=== PATIENT | male | born 1950 | race Caucasian/White ===

== ENCOUNTER 2018-12-10 12:09 | Inpatient (IN) | payer MEDICARE, BC ==
[~2018-12-10] VITALS: Ht 177.8 cm; Wt 104.0 kg
[~2018-12-10 12:09] MED LIST: ACET500 PO; AMBIEN; AMLO5 PO; ANTIBIOTIC; ASPI325 PO; ASPI81EC PO; BELSOMRA10 MG PO; BIOTIN-D1 GM PO; BUPR75 PO; CALC.25; CALC.25 PO; CLON.5 PO; DICL100ER PO; DULO60 PO; FINA5; FINA5 PO; GABA100 PO; HYDACE5 PO; HYDR1TAB94 PO; LISI5 PO; MOMENI; Norco 5-325 Ta1 EACH PO; OXYACE7.5T PO; PANT40 PO; POTCIT10 PO; POTCIT5; PRAV20; PRED20 PO; PROP10 PO; PROP20 PO; Pravachol80 MG PO; Prinivil10 MG PO; Protonix40 MG PO; ROSU10TA PO; SERT100 PO; TUMS FRESHERS200 MG PO; UBID10 PO; VENL75ER; VENL75ER PO; VITAMIN D31000 UNI2 PO; Vitamin C100 M1; ZOLP10; Zofran Odt4 MG SL
--- NOTE | 2018-12-11 06:40 | NUR ---
INTO [facility] ADMISSION STARTED TO UNIT
--- NOTE | 2018-12-11 06:40 | NUR ---
Ambulatory in Day Surgery History, Chart, Medications and Allergies reviewed before start of procedure.Lungs clear T/O to Auscultation. Patient confirms NPO status and agrees with scheduled surgery.
--- NOTE | 2018-12-11 07:38 | NUR ---
UP TO BATHROOM PRIOR TO TAKING BACK TO OR. CALL TO PHARMACY LOOKING FOR TRANSEMIC (SP) RX ORDERED.
--- NOTE | 2018-12-12 05:33 | NUR ---
SHIFT SUMMARY AAOX4. POD#1 RIGHT JASPAL. DISCOMFORT CONTROLLED WITH 1 ROXICODONE Q4P + TORADOL X1 THIS SHIFT. NO NAUSEA/EMESIS. DRESSING TO RIGHT HIP C/D/I. UP TO RESTROOM, SBA WITH FWW, TOLERATED WELL. PT RESTED WELL T/O NIGHT + RESTING WELL THIS AM, NADN, CALL LIGHT IN REACH.
[2018-12-12 06:34] LABS: BASOPHILS ABSOLUTE AUTO 0.01 K/mm3 (0.00-0.23); BASOPHILS PERCENT AUTO 0 % (0-2); EOSINOPHILS ABSOLUTE AUTO 0.01 K/mm3 (0.00-0.68); EOSINOPHILS PERCENT AUTO 0 % (0-6); Hematocrit 34.7 % (37.0-53.0); Hemoglobin 11.4 g/dL (13.5-17.5); IMMATURE GRAN ABSOLUTE AUTO 0.05 K/mm3 (0.00-0.10); IMMATURE GRAN PERCENT AUTO 0 % (0-1); LYMPHOCYTES ABSOLUTE AUTO 1.36 K/mm3 (0.84-5.20); LYMPHOCYTES PERCENT AUTO 10 % (21-46); MONOCYTES ABSOLUTE AUTO 1.34 K/mm3 (0.16-1.47); MONOCYTES PERCENT AUTO 10 % (4-13); Mean Corpuscular HGB Conc 32.9 g/dL (31.5-36.5); Mean Corpuscular Volume 85 fL (80-100); Mean Platelet Volume 10.8 fL (9.1-12.4); NEUTROPHILS ABSOLUTE AUTO 10.41 K/mm3 (1.96-9.15); NEUTROPHILS PERCENT AUTO 79 % (41-73); Platelet Count 165 K/mm3 (150-400); RDW Coefficient Variation 14.1 % (11.7-14.2); RDW Standard Deviation 43.9 fL (35.1-46.3); Red Blood Cell Count 4.07 M/mm3 (4.30-5.90); White Blood Cell Count 13.18 K/mm3 (4.00-11.30)
[2018-12-12 06:51] LABS: Bun/Creatinine Ratio 20.3 (12.0-20.0); Calcium, Blood 8.2 mg/dL (8.5-10.1); Creatinine, Blood 1.38 mg/dL (0.60-1.20); Potassium, Blood 3.9 mmol/L (3.5-5.5)
--- NOTE | 2018-12-12 08:05 | NUR ---
oob to bathroom then to chair pt reports min pain aquacel cdi pt assisted into his own clothes
[2018-12-12] MEDS ORDERED: XARELTO15 MG PO (09:39)
[2018-12-12] MEDS ORDERED: CELE100 PO (09:39)
[2018-12-12] MEDS ORDERED: Percocet 5-3251 EACH PO (09:39)
--- NOTE | 2018-12-12 11:13 | NUR ---
DISCHARGE INSTRUCTIONS REVIEWED WITH PT VERBALIZED WITH PT DRESSING SUPPLIES GIVEN PT AWAITING A RIDE
--- NOTE | 2018-12-12 12:00 | NUR ---
pt eating lunch
--- NOTE | 2018-12-12 12:30 | NUR ---
wc escort to car no acute changes
--- NOTE | 2018-12-15 12:34 | NUR ---
12/15/18 1234 Francie Murphy VERIFICATIONS: EDIT CHART.
== END 2018-12-12 12:28 | disposition home or self-care (01) | DRG 470 ==
LOC: SURS 12-11 06:14 → PRE IP 12-11 07:30 → SURS 12-11 11:01
PROVIDERS: ADMIT Orthopaedic Surgery
PROC: 0SR904A Replacement of Right Hip Joint with Ceramic on Polyethylene Synthetic Substitute, Uncemented, Open Approach (ICD-10-PCS; principal; 2018-12-11 07:30)
DX: M16.11 Unilateral primary osteoarthritis, right hip (principal); I10 Essential (primary) hypertension; E78.5 Hyperlipidemia, unspecified; G47.33 Obstructive sleep apnea (adult) (pediatric); G89.29 Other chronic pain; G62.9 Polyneuropathy, unspecified; F41.9 Anxiety disorder, unspecified; F32.9 Major depressive disorder, single episode, unspecified; I25.10 Atherosclerotic heart disease of native coronary artery without angina pectoris; Z88.5 Allergy status to narcotic agent; Z88.2 Allergy status to sulfonamides; Z79.82 Long term (current) use of aspirin; Z79.899 Other long term (current) drug therapy
CPT/HCPCS: 36415; 72170; 80048; 85025; 86850; 86900; 86901; 88300; 94762; 97110; 97116; 97162; 97530; C1776; C9113; J0171; J0690; J0735; J1100; J1885; J2250; J2370; J2405; J2704; J2795; J3010; J7120

== ENCOUNTER → 2019-12-09 | Outpatient (CLI) | payer BC ==
[~2019-12-09] MED LIST changes: +CELE100 PO; +Percocet 5-3251 EACH PO; +XARELTO15 MG PO
[2019-12-09 17:27] LABS: U Amphetamine Screen Not Detected; U Barbituate Screen Not Detected; U Benzodiazapine Screen Not Detected; U Buprenorphine Screen Not Detected; U Cannabinoids Screen DETECTED; U Cocaine Screen Not Detected; U Methadone Screen Not Detected; U Methamphetamine Screen Not Detected; U Opiates Screen Not Detected; U Oxycodone Screen Not Detected; U Phencyclidine Screen Not Detected; U Propoxyphene Screen Not Detected
== END | disposition home or self-care (01) ==
LOC: LAB SHORT 14:59 → LAB 14:59
PROVIDERS: Internal Medicine Critical Care Medicine
DX: R40.0 Somnolence (principal)

== ENCOUNTER 2022-10-03 15:06 | Emergency (ER) | payer BC ==
[~2022-10-03] VITALS: Ht 177.8 cm; Wt 113.4 kg
[2022-10-03 18:21] LABS: Albumin, Blood 3.5 g/dL (3.4-5.0); Albumin/Globulin Ratio 0.9 (0.8-1.8); Bilirubin, Total 0.7 mg/dL (0.1-1.0); Calcium, Blood 8.4 mg/dL (8.5-10.1); Creatinine, Blood 1.04 mg/dL (0.60-1.20); Globulin, Blood 3.8 g/dL (2.2-4.0); Magnesium, Blood 2.1 mg/dL (1.6-2.4); Phosphorus, Blood 2.4 mg/dL (2.5-4.9); Potassium, Blood 4.4 mmol/L (3.5-5.5); Thyroid Stimulating Hormone 1.92 uIU/mL (0.360-4.800); Total Protein, Blood 7.3 g/dL (6.4-8.2)
[2022-10-03 18:23] LABS: BASOPHILS ABSOLUTE AUTO 0.02 K/mm3 (0.00-0.23); BASOPHILS PERCENT AUTO 0 % (0-2); EOSINOPHILS ABSOLUTE AUTO 0.14 K/mm3 (0.00-0.68); EOSINOPHILS PERCENT AUTO 3 % (0-6); Hematocrit 43.6 % (37.0-53.0); Hemoglobin 14.9 g/dL (13.5-17.5); IMMATURE GRAN ABSOLUTE AUTO 0.01 K/mm3 (0.00-0.10); IMMATURE GRAN PERCENT AUTO 0 % (0-1); LYMPHOCYTES PERCENT AUTO 27 % (21-46); MONOCYTES ABSOLUTE AUTO 0.42 K/mm3 (0.16-1.47); MONOCYTES PERCENT AUTO 8 % (4-13); Mean Corpuscular HGB 28.7 pg (26.0-34.0); Mean Corpuscular HGB Conc 34.2 g/dL (31.5-36.5); Mean Corpuscular Volume 84 fL (80-100); Mean Platelet Volume 9.9 fL (9.1-12.4); NEUTROPHILS ABSOLUTE AUTO 3.53 K/mm3 (1.96-9.15); NEUTROPHILS PERCENT AUTO 63 % (41-73); Platelet Count 176 K/mm3 (150-400); RDW Standard Deviation 43.1 fL (35.1-46.3); Red Blood Cell Count 5.19 M/mm3 (4.30-5.90); White Blood Cell Count 5.62 K/mm3 (4.00-11.30)
[2022-10-03 20:39] VITALS: BP 160/108
== END 2022-10-03 20:48 | disposition home or self-care (01) ==
LOC: ER 15:06
PROVIDERS: Emergency Medicine
DX: R07.2 Precordial pain (principal)
CPT/HCPCS: 71046; 80053; 83690; 83735; 84100; 84443; 84484; 85025; 85379; 93005; 93010; 99285-25

== ENCOUNTER → 2022-10-03 | Outpatient (CLI) | payer BC ==
[2022-10-03 14:57] LABS: BASOPHILS ABSOLUTE AUTO 0.04 K/mm3 (0.00-0.23); BASOPHILS PERCENT AUTO 1 % (0-2); EOSINOPHILS PERCENT AUTO 3 % (0-6); Hematocrit 47.8 % (37.0-53.0); Hemoglobin 16.4 g/dL (13.5-17.5); IMMATURE GRAN ABSOLUTE AUTO 0.02 K/mm3 (0.00-0.10); IMMATURE GRAN PERCENT AUTO 0 % (0-1); LYMPHOCYTES ABSOLUTE AUTO 1.93 K/mm3 (0.84-5.20); LYMPHOCYTES PERCENT AUTO 33 % (21-46); MONOCYTES ABSOLUTE AUTO 0.51 K/mm3 (0.16-1.47); MONOCYTES PERCENT AUTO 9 % (4-13); Mean Corpuscular HGB 28.9 pg (26.0-34.0); Mean Corpuscular HGB Conc 34.3 g/dL (31.5-36.5); Mean Corpuscular Volume 84 fL (80-100); Mean Platelet Volume 9.8 fL (9.1-12.4); NEUTROPHILS ABSOLUTE AUTO 3.18 K/mm3 (1.96-9.15); NEUTROPHILS PERCENT AUTO 54 % (41-73); Platelet Count 158 K/mm3 (150-400); RDW Coefficient Variation 14.4 % (11.7-14.2); RDW Standard Deviation 43.6 fL (35.1-46.3); Red Blood Cell Count 5.68 M/mm3 (4.30-5.90); White Blood Cell Count 5.88 K/mm3 (4.00-11.30)
[2022-10-03 15:08] LABS: Albumin, Blood 3.7 g/dL (3.4-5.0); Albumin/Globulin Ratio 0.9 (0.8-1.8); Bilirubin, Total 0.6 mg/dL (0.1-1.0); Bun/Creatinine Ratio 21.4 (12.0-20.0); Calcium, Blood 8.9 mg/dL (8.5-10.1); Creatinine, Blood 1.17 mg/dL (0.60-1.20); Globulin, Blood 3.9 g/dL (2.2-4.0); Potassium, Blood 4.4 mmol/L (3.5-5.5); Total Protein, Blood 7.6 g/dL (6.4-8.2)
== END ==
LOC: LAB 14:52 → LAB SHORT 14:52
PROVIDERS: Physician Assistant
DX: R07.9 Chest pain, unspecified (principal)
CPT/HCPCS: 80053; 83690; 84484; 85025

== ENCOUNTER 2024-04-09 22:19 | Emergency (ER) | payer BC ==
[~2024-04-09] VITALS: Ht 177.8 cm; Wt 113.4 kg
[2024-04-10 01:02] LABS: Source, Urine Straight Cath
[2024-04-10 01:13] LABS: Bilirubin, Urine Neg (Neg); Blood, Urine 5+ (Neg); Glucose Qualitative, Urine Neg (Neg); Ketones, Urine Neg (Neg); Leukocyte Esterase, Urine Neg (Neg); Nitrite, Urine Neg (Neg); Protein, Urine 2+ (Neg); Urobilinogen, Urine NORM (Normal); pH, Urine 6.5 (5.0-8.0)
[2024-04-10 01:34] LABS: Appearance, Urine Hazy (Clear); Color, Urine Amber (P-Yellow)
[2024-04-10 01:35] LABS: Bacteria Few /hpf; Red Blood Cells, Urine TNTC /hpf (0-2); Squamous Epithelial Cells Rare /hpf (Few); White Blood Cells, Urine 0-2 /hpf (0-5)
[2024-04-10] MEDS ORDERED: TAMS.4ER PO (03:19)
[2024-04-10] MEDS ORDERED: Tamsulosin HCl 0.4 MG Cap PO ONE (03:20)
[2024-04-10 03:45] VITALS: BP 139/77
== END 2024-04-10 03:48 | disposition home or self-care (01) ==
LOC: ER 22:19
PROVIDERS: Emergency Medicine
DX: R33.9 Retention of urine, unspecified (principal); Z88.2 Allergy status to sulfonamides; Z88.5 Allergy status to narcotic agent; Z88.8 Allergy status to other drugs, medicaments and biological substances; Z79.891 Long term (current) use of opiate analgesic; Z79.899 Other long term (current) drug therapy; Z79.82 Long term (current) use of aspirin; Z79.83 Long term (current) use of bisphosphonates; Z79.2 Long term (current) use of antibiotics
CPT/HCPCS: 51702; 51798; 81001; 99283-25; A9270